=== PATIENT | male | born 1985 | race Hispanic/Latino ===

== ENCOUNTER 2021-01-02 08:08 | Emergency (ER) | payer SELFPAY ==
[2021-01-02] MEDS ORDERED: Fluorescein Opthalmic Strip ONE (11:12)
[2021-01-02] MEDS ORDERED: Proparacaine 0.5% Opth 15 ML BOT ONE (11:13)
== END 2021-01-02 12:02 | disposition home or self-care (01) ==
LOC: ERS 08:08
DX: B02.30 Zoster ocular disease, unspecified (principal); F17.210 Nicotine dependence, cigarettes, uncomplicated
CPT/HCPCS: 99283